=== PATIENT | male | born 2000 | race American Indian/Alaskan Native ===

== ENCOUNTER 2025-01-16 13:36 | Emergency (ER) | payer OTHER ==
[2025-01-16] MEDS: HYDROmorphone 2 MG/ML SDV IVPUSH ONE (13:41)
[2025-01-16] MEDS: Ketorolac 30 MG/ML SDV IVPUSH ONE (13:41)
[2025-01-16] MEDS: Diphtheria,Pertussis(Acell),Tetanus Vaccine 0.5 ML Syringe IM ONE (13:42)
[2025-01-16] MEDS ORDERED: Naloxone 0.4 MG/ML SDV IVPUSH PRN (13:53)
[2025-01-16 14:00] LABS: BASOPHILS ABSOLUTE AUTO 0.1 x10-3/uL (0.0-0.3); BASOPHILS PERCENT AUTO 0.9 % (0.3-3.8); EOSINOPHILS ABSOLUTE AUTO 0.1 x10-3/uL (0.0-0.6); EOSINOPHILS PERCENT AUTO 0.9 % (0.1-6.8); LYMPHOCYTES ABSOLUTE AUTO 4.0 x10-3/uL (0.5-4.5); LYMPHOCYTES PERCENT AUTO 29.4 % (15.8-45.3); MEAN PLATELET VOLUME 8.0 fL (6.7-11.0); MONOCYTES ABSOLUTE AUTO 1.0 x10-3/uL (0.0-1.2); MONOCYTES PERCENT AUTO 7.4 % (5.5-15.2); NEUTROPHILS ABSOLUTE AUTO 8.3 x10-3/uL (1.7-6.9); NEUTROPHILS PERCENT AUTO 61.4 % (40.3-71.8); PLATELET COUNT,PLT 445 x10(3)uL (117-477); RED BLOOD CELL COUNT 4.85 x10(6)uL (3.90-5.90); RED CELL DISTRIBUTION WIDTH 13.1 % (12.4-15.0); WHITE BLOOD CELL COUNT,WBC 13.5 x10-3/uL (3.2-10.1)
[2025-01-16 14:02] LABS: BLOOD UREA NITROGEN,BUN 28 mg/dL (7-18); CARBON DIOXIDE,CO2 21 mmol/L (21-32); CHLORIDE,CL 100 mmol/L (100-110); CREATININE 1.2 mg/dL (0.70-1.30); ESTIMATED GFR 88 mL/min (>60); GLUCOSE RANDOM 150 mg/dL (80-116); POTASSIUM,K 3.2 mmol/L (3.5-5.3); SODIUM,NA 138 mmol/L (135-145)
[2025-01-16 14:07] LABS: A/G RATIO 1.1; ALANINE AMINOTRANSFERASE,ALT 31 U/L (12-36); ASPARTATE AMNIOTRANSFERASE,AST 31 IU/L (5-25); BILIRUBIN TOTAL 0.9 mg/dL (0.1-1.3); PROTEIN TOTAL,TP 7.7 g/dL (6.0-8.0)
[2025-01-16] MEDS: Lactated Ringers 1,000 ML IV SCH (14:07)
[2025-01-16 14:08] LABS: INR 1.01 (1.00-1.24)
[2025-01-16 14:09] LABS: PTT,PARTIAL THROMBOPLSTIN TIME 31.5 SECONDS (24.4-33.2)
[2025-01-16 14:34] LABS: GLUCOSE,URINE NORMAL (NORMAL); OCCULT BLOOD,URINE NEGATIVE (NEGATIVE)
[2025-01-16 14:40] LABS: APPEARANCE,URINE CLEAR (CLEAR)
[2025-01-16 14:55] LABS: AMPHETAMINES SCREEN, URINE NEGATIVE (NEGATIVE); BUPRENORPHINE SCREEN,URINE NEGATIVE (NEGATIVE); METHADONE SCREEN, URINE NEGATIVE (NEGATIVE); METHAMPHETAMINE SCREEN, URINE NEGATIVE (NEGATIVE); OXYCODONE SCREEN,URINE NEGATIVE (NEGATIVE)
== END 2025-01-16 15:00 ==
LOC: FB.ED 13:36
DX: T22.352A Burn of third degree of left shoulder, initial encounter (principal); T24.312A Burn of third degree of left thigh, initial encounter; T20.20XA Burn of second degree of head, face, and neck, unspecified site, initial encounter; T21.21XA Burn of second degree of chest wall, initial encounter; T21.25XA Burn of second degree of buttock, initial encounter; T21.24XA Burn of second degree of lower back, initial encounter; T23.271A Burn of second degree of right wrist, initial encounter; T31.11 Burns involving 10-19% of body surface with 10-19% third degree burns; T31.33 Burns involving 30-39% of body surface with 30-39% third degree burns; E86.0 Dehydration; Z23 Encounter for immunization; Z79.01 Long term (current) use of anticoagulants; Z79.899 Other long term (current) drug therapy; X08.8XXA Exposure to other specified smoke, fire and flames, initial encounter
CPT/HCPCS: 36415; 71045; 80053; 80307; 81003; 85025; 85610; 85730; 90471; 90715; 96361; 96374; 96375; 96376; 99285; J1171; J1885; J2270; J7120